=== PATIENT | female | born 1990 | race Caucasian/White ===

== ENCOUNTER 2018-01-18 22:48 | Emergency (ER) | payer MEDICAID ==
[~2018-01-18] VITALS: Ht 167.6 cm; Wt 82.1 kg
[2018-01-18 22:51] VITALS: BP 125/86
[2018-01-18] MEDS ORDERED: IBUPROFEN 200 MG TABLET PO ONE (23:00)
[2018-01-18] MEDS ORDERED: ONDANSETRON ODT 4 MG PO ONE (23:00)
[2018-01-18] MEDS ORDERED: HYDROcodone/APAP 5/325 TABLET PO ONE (23:00)
[2018-01-18] MEDS ORDERED: HYDROcodone/APAP 5/325 TABLET ONE (23:02)
[2018-01-18] MEDS ORDERED: IBUPROFEN 200 MG TABLET ONE (23:02)
[2018-01-18] MEDS ORDERED: ONDANSETRON ODT 4 MG ONE (23:02)
== END 2018-01-19 00:21 | disposition home or self-care (01) ==
LOC: ED 23:33
DX: S63.642A Sprain of metacarpophalangeal joint of left thumb, initial encounter (principal); W18.2XXA Fall in (into) shower or empty bathtub, initial encounter; Y93.89 Activity, other specified; Y99.8 Other external cause status; Y92.009 Unspecified place in unspecified non-institutional (private) residence as the place of occurrence of the external cause
CPT/HCPCS: 29125; 73130; 99284; Q0162